=== PATIENT | female | born 1965 | race American Indian/Alaskan Native ===

== ENCOUNTER 2017-04-27 11:10 | Emergency (ER) | payer OTHER ==
[2017-04-27 11:21] VITALS: BP 109/71; TEMP 97.9
--- NOTE | 2017-04-27 12:38 | C.PDOC ---
History Of Present Illness 51 y/o female presents to ED for evaluation of right foot pain for the past month. Patient state she twisted and fell 1 month ago, and is complaining of intermittent pain to medial aspect of right foot. Otherwise, denies any other injury, sensory changes, rash, or fever. Time Seen by Provider: 04/27/17 11:25 Chief Complaint (Nursing): Lower Extremity Problem/Injury History Per: Patient History/Exam Limitations: no limitations Onset/Duration Of Symptoms: Days (1 month), Intermittent Episodes Current Symptoms Are (Timing): Still Present Recent travel outside of the [place]: No Additional History Per: Patient - Ankle/Foot Description Of Injury: Fell, Twisted Past Medical History Reviewed: Historical Data, Nursing Documentation, Vital Signs Vital Signs: Last Vital Signs Temp 97.9 F 04/27/17 11:20 Pulse 75 04/27/17 13:06 Resp 18 04/27/17 13:06 BP 109/71 04/27/17 11:20 Pulse Ox 98 04/27/17 13:06 - Medical History PMH: Back Problems, HTN, Hypercholesterolemia Family History: States: Unknown Family Hx - Social History Hx Alcohol Use: No Hx Substance Use: No - Immunization History Hx Tetanus Toxoid Vaccination: No Hx Influenza Vaccination: No Hx Pneumococcal Vaccination: No Review Of Systems Except As Marked, All Systems Reviewed And Found Negative. Constitutional: Negative for: Fever, Chills Musculoskeletal: Positive for: Foot Pain (right). Negative for: Leg Pain Skin: Negative for: Rash, Bruising Neurological: Negative for: Weakness, Numbness Physical Exam - Physical Exam Appears: Non-toxic, No Acute Distress Skin: Normal Color, Warm, Dry, No Other (no erythema to right foot) Head: Atraumatic, Normacephalic Chest: Symmetrical Cardiovascular: Rhythm Regular, No Murmur Respiratory: Normal Breath Sounds, No Rales, No Rhonchi, No Wheezing Extremity: Normal ROM (FROM of right ankle and digits), Tenderness (mild tenderness to 1st MTP with palpation), Capillary Refill (< 2 sec.), No Deformity , No Swelling Extremity: Bilateral: Normal Color And Temperature, Normal ROM Pulses: Left Dorsalis Pedis: Normal, Right Dorsalis Pedis: Normal Neurological/Psych: Oriented x3, Normal Speech, Normal Cognition, Normal Motor, Normal Sensation ED Course And Treatment O2 Sat by Pulse Oximetry: 99 (on RA) Pulse Ox Interpretation: Normal - Other Rad Right foot x-ray X-Ray: Viewed By Me, Read By Radiologist Interpretation: No acute fracture or dislocation. Progress Note: Right foot x-ray ordered and reviewed. Patient was given Tylenol. Patient is being discharged home and is instructed to follow up with Podiatry within a week. Disposition Counseled Patient/Family Regarding: Studies Performed, Diagnosis, Need For Followup, Rx Given - Disposition Referrals: Podiatry Clinic [Outside] Disposition: HOME/ ROUTINE Disposition Time: 12:35 Condition: STABLE Additional Instructions: FOLLOW UP WITH PODIATRY WITHIN 1 WEEK USE PAIN MEDICATION NEEDED RETURN TO ER IF SYMPTOMS WORSEN Prescriptions: Naproxen [Naprosyn Tab] 375 mg PO BID PRN #20 tab PRN Reason: pain Instructions: Foot Sprain (ED) Print Language: SWAZI - POA Present On Arrival: Falls Or Trauma - Clinical Impression Clinical Impression: Right foot sprain - Scribe Statement The provider has reviewed the documentation as recorded by the Suyapa Guevara All medical record entries made by the Suyapa were at my direction and personally dictated by me. I have reviewed the chart and agree that the record accurately reflects my personal performance of the history, physical exam, medical decision making, and the department course for this patient. I have also personally directed, reviewed, and agree with the discharge instructions and disposition.
[2017-04-27 13:07] VITALS: PULSE 75; RESP 18
--- NOTE | 2017-04-27 13:12 | RAD ---
PROCEDURE: Right Foot Radiographs. HISTORY: RIGHT FOOT PAIN (MEDIAL ASPECT) S/P FALL COMPARISON: None. FINDINGS: BONES: No evidence of acute displaced fracture nor dislocation. The osseous structures appear grossly intact. JOINTS: Minor hallux valgus deformity with minimal DJD 1st MTP joint. There appears to be some prominence of the overlying medial soft tissues as well. SOFT TISSUES: Normal. OTHER FINDINGS: None. IMPRESSION: No acute fracture seen. If symptoms persist or occult fracture suspected clinically recommend repeat radiographs in 5-10 days as most fractures become radiographically evident in this timeframe. Minor hallux valgus deformity and minimal DJD 1st MTP joint associate with minimal overlying skin medial soft tissue swelling.
[2017-04-27 14:29] VITALS: O2SAT 99
== END 2017-04-27 13:07 | disposition home or self-care (01) ==
LOC: C.ER 11:10 → MERGE 11:10 → C.ER 13:07
DX: S93.601A Unspecified sprain of right foot, initial encounter (principal); W19.XXXA Unspecified fall, initial encounter; Y92.9 Unspecified place or not applicable

== ENCOUNTER 2017-05-02 12:42 | Emergency (ER) | payer OTHER ==
[2017-05-02 12:55] VITALS: PULSE 78; RESP 18; O2SAT 98
[2017-05-02] MEDS ORDERED: Dexamethasone 4 mg/1 ml IM STA (13:15)
--- NOTE | 2017-05-02 13:22 | C.PDOC ---
History Of Present Illness 51 yr old female presents to the ER with complaints of left posterior thigh pain for the past 2 days. Patient states the pain is radiating down to the left calf. States the pain started off as mild and gradually became worse prompting the visit. Patient states the pain is worsened with movement and walking. States current pain is9/10. Patient denies fever, chest pain, SOB, abdominal pain, constipation, back pain, weakness or numbness. Time Seen by Provider: 05/02/17 13:03 Chief Complaint (Nursing): Lower Extremity Problem/Injury History Per: Patient History/Exam Limitations: no limitations Onset/Duration Of Symptoms: Days (2) Past Medical History Reviewed: Historical Data, Nursing Documentation, Vital Signs Vital Signs: Last Vital Signs Temp 98.1 F 05/02/17 15:50 Pulse 78 05/02/17 15:50 Resp 18 05/02/17 15:50 BP 109/73 05/02/17 15:50 Pulse Ox 98 05/02/17 15:50 - Medical History PMH: Back Problems, HTN, Hypercholesterolemia Family History: States: No Known Family Hx - Social History Hx Alcohol Use: No Hx Substance Use: No - Immunization History Hx Tetanus Toxoid Vaccination: No Hx Influenza Vaccination: No Hx Pneumococcal Vaccination: No Review Of Systems Except As Marked, All Systems Reviewed And Found Negative. Constitutional: Negative for: Fever Cardiovascular: Negative for: Chest Pain Respiratory: Negative for: Shortness of Breath Gastrointestinal: Negative for: Abdominal Pain, Constipation Musculoskeletal: Negative for: Back Pain Neurological: Negative for: Weakness, Numbness Physical Exam - Physical Exam Appears: Non-toxic, No Acute Distress Skin: Warm, Dry Head: Atraumatic, Normacephalic Eye(s): bilateral: Normal Inspection, PERRL, EOMI Oral Mucosa: Moist Neck: Normal ROM, No Midline Cervical Tenderness, No Paracervical Tenderness Chest: Symmetrical, No Tenderness Cardiovascular: Rhythm Regular, No Friction Rub, No Murmur Respiratory: Normal Breath Sounds, No Rales, No Rhonchi, No Stridor, No Wheezing Gastrointestinal/Abdominal: Normal Exam, Soft, No Tenderness, No Guarding, No Rebound Extremity: Normal ROM, Tenderness (Left thigh, posterior and left posterior calf ), Capillary Refill (<2), No Swelling Pulses: Left Dorsalis Pedis: Normal, Right Dorsalis Pedis: Normal Neurological/Psych: Oriented x3, Normal Speech, Normal Motor Gait: Steady ED Course And Treatment O2 Sat by Pulse Oximetry: 98 (RA ) Pulse Ox Interpretation: Normal Medical Decision Making Medical Decision Making: PLAN: * Venous Duplex * Valium PO * Decadron IM * Toradol IM On re-exam, the patient reports improvement of symptoms. Ambulatory in the Ed with steady gait. Lungs are CTA, heart is RRR, Abdomen is soft, non-tender and patient is tolerating PO well. Follow up with the medical doctor within 1-2 days. Return if worsened. Disposition - Disposition Referrals: Gissell Ingram MD [Staff Provider] - Disposition: HOME/ ROUTINE Disposition Time: 15:45 Condition: GOOD Additional Instructions: Follow up with the medical doctor within 1-2 days. Return if worsened. Prescriptions: diaZEpam [Valium] 5 mg PO TID #21 tab Lidocaine 5% [Lidoderm] 1 each TP DAILY #7 patch Naproxen [Naprosyn] 500 mg PO BID #20 tab Instructions: Lumbar Radiculopathy (ED) Forms: [employer] (Serbian) - Clinical Impression Clinical Impression: Lumbar radiculopathy - PA / UTILITY TRACTOR OPERATOR / Resident Statement MD/DO has reviewed & agrees with the documentation as recorded. - Scribe Statement The provider has reviewed the documentation as recorded by the Scribe Andra Honeycutt All medical record entries made by the Scribe were at my direction and personally dictated by me. I have reviewed the chart and agree that the record accurately reflects my personal performance of the history, physical exam, medical decision making, and the department course for this patient. I have also personally directed, reviewed, and agree with the discharge instructions and disposition.
[2017-05-02] MEDS ORDERED: Dexamethasone 4 mg/1 ml ONE (13:42)
[2017-05-02] MEDS ORDERED: Oxycodone/Acetaminophen 5/325 mg Tab PO STA (14:57)
[2017-05-02] MEDS ORDERED: Lidocaine 5% Patch TD STA (14:57)
[2017-05-02] MEDS ORDERED: Oxycodone/Acetaminophen 5/325 mg Tab ONE (15:06)
[2017-05-02] MEDS ORDERED: Lidocaine 5% Patch TD ONE (15:06)
[2017-05-02 15:51] VITALS: BP 109/73; TEMP 98.1
--- NOTE | 2017-05-03 11:14 | VASCLAB ---
PROCEDURE: Left Lower Extremity Venous Duplex Exam. HISTORY: left leg pain in the thigh and left calf. PRIORS: None. TECHNIQUE: Left common femoral, femoral, popliteal and posterior tibial, peroneal and great saphenous veins were evaluated. Flow was assessed with color Doppler, compressibility, assessment of phasic flow and augmentation response. Report prepared by RODGER Mccain, RVT FINDINGS: LEFT: 1. Common Femoral Vein: 1.1. Compressibility - Fully compressible: Thrombus - None : Flow - Phasic: Augmentation -Normal: Reflux - None. 2. Femoral Vein: 2.1. Compressibility - Fully compressible: Thrombus - None: Flow - Phasic: Augmentation -Normal: Reflux - None. 3. Popliteal Vein: 3.1. Compressibility - Fully compressible: Thrombus - None: Flow - Phasic: Augmentation -Normal: Reflux - None. 4. Posterior Tibial Vein: 4.1. Compressibility - Fully compressible: Thrombus - None: Flow - Phasic: Augmentation -Normal: Reflux - None. 5. Peroneal Vein: 5.1. Compressibility - Fully compressible: Thrombus - None: Flow - Phasic: Augmentation -Normal: Reflux - None. 6. Great Saphenous Vein: 6.1. Compressibility - Fully compressible: Thrombus - None: Flow - Phasic: Augmentation - Normal: Reflux - None. OTHER FINDINGS: IMPRESSION: No evidence of deep or superficial vein thrombosis of the left lower extremity with excellent venous flow. Normal valve function noted of the left side. Normal venous flow noted in the right common femoral vein.
== END 2017-05-02 16:06 | disposition home or self-care (01) ==
LOC: C.ER 12:42
DX: M54.16 Radiculopathy, lumbar region (principal)
CPT/HCPCS: 93971; 96372; 99284; J1100; J1885